=== PATIENT | male | born 1995 | race Caucasian/White ===

== ENCOUNTER 2017-05-27 16:28 | Outpatient (CLI) | payer OTHER ==
--- NOTE | 2017-05-27 17:08 | RAD ---
THREE VIEWS THORACIC SPINE 05/27/17 AP, lateral, and swimmer's view thoracic spine is obtained. Three views thoracic spine demonstrate no evidence of thoracic spine fractures, subluxations or bony lesions. IMPRESSION: Normal three views thoracic spine. POS: [facility]
== END 2017-05-27 16:29 | disposition home or self-care (01) ==
LOC: SCSRAD 16:28
PROVIDERS: ATTEND Family Medicine
DX: M54.9 Dorsalgia, unspecified (principal)
CPT/HCPCS: 72072